=== PATIENT | female | born 1970 | race Caucasian/White ===

== ENCOUNTER 2017-01-23 13:22 | Emergency (ER) | payer SELFPAY ==
[2017-01-23 13:47] VITALS: BP 144/88
--- NOTE | 2017-01-23 14:54 | EDM.PDOC ---
ED HPI GENERAL MEDICAL PROBLEM - General Chief Complaint: Lower Extremity Injury/Pain Stated Complaint: FELL DOWN STEPS Time Seen by Provider: 01/23/17 14:46 Source of Information: Reports: Patient History Limitations: Reports: No Limitations - History of Present Illness INITIAL COMMENTS - FREE TEXT/NARRATIVE: Patient is a 46-year-old female presents ED complaining of left foot and ankle pain. Patient states last night approximately 10:30 she was walking down a set of stairs and missed the last step rolling her ankle. She has been able to weight-bear up until today. Has been applying ice to affected area with some decrease in swelling noted. Denies any pain to the superior aspect of her lower leg, knee, hip. There is no loss consciousness and denies any head neck or back pain. No history of prior injury. Left Ankle Pain Score (Numeric/FACES): 8 - Related Data Allergies Allergy/AdvReac Type Severity Reaction Status Date / Time latex Allergy Rash Verified 08/05/14 13:53 metformin Allergy Diarrhea Verified 01/23/17 13:49 metals Allergy Rash Uncoded 08/05/14 13:53 Home Meds: Home Meds Insulin Glarg,Human.Rec.Analog [Lantus] 50 units INJECT BEDTIME 01/23/17 [ History] Lisinopril 20 mg PO BID 01/23/17 [History] Metoprolol Tartrate 25 mg PO BID 01/23/17 [History] Novalog 60 units INJECT TID 01/23/17 [History] Pregabalin [Lyrica] 100 mg PO Q8H 01/23/17 [History] Venlafaxine [Effexor] 250 mg PO DAILY 01/23/17 [History] glyBURIDE [Glyburide] 4 mg PO DAILY 01/23/17 [History] Past Medical History Gastrointestinal History: Reports: GERD Genitourinary History: Reports: Other (See Below) Other Genitourinary History: cyst on kidney; renal failure twice Musculoskeletal History: Reports: Other (See Below) Other Musculoskeletal History: 3 back surgeries and has pins and rods Neurological History: Reports: Migraines Psychiatric History: Reports: Anxiety, Bipolar, Dementia, PTSD Endocrine/Metabolic History: Reports: Diabetes, Type II - Infectious Disease History Infectious Disease History: Reports: Hepatitis C - Past Surgical History GI Surgical History: Reports: Appendectomy, Cholecystectomy Female Surgical History: Reports: Hysterectomy Social & Family History - Tobacco Use Smoking Status *Q: Current Every Day Smoker Years of Tobacco use: 26 Packs/Tins Daily: 1 - Caffeine Use Caffeine Use: Reports: Soda, Tea - Recreational Drug Use Recreational Drug Use: No Review of Systems - Review of Systems Review Of Systems: ROS reveals no pertinent complaints other than HPI. ED EXAM, GENERAL - Physical Exam Exam: See Below Exam Limited By: No Limitations General Appearance: Alert, WD/WN, Mild Distress Ears: Hearing Grossly Normal Nose: Normal Inspection Throat/Mouth: Normal Voice, No Airway Compromise Neck: Normal Inspection Respiratory/Chest: No Respiratory Distress, No Accessory Muscle Use Cardiovascular: Normal Peripheral Pulses, Regular Rate, Rhythm Peripheral Pulses: 2+: Radial (L) Extremities: Normal Inspection, Normal Capillary Refill, Leg Pain (Dorsal aspect of the left foot and lateral aspect of the ankle. No pain with palpation of the proximal fibula. No pain to the knee, upper leg, hip.), Limited Range of Motion. No: Joint Swelling Neurological: Alert, Oriented, Normal Cognition, No Motor/Sensory Deficits Psychiatric: Normal Affect, Normal Mood Skin Exam: Warm, Dry, Intact. No: Ecchymosis Course - Vital Signs Last Recorded V/S: Last Vital Signs Temp 97.5 F 01/23/17 13:46 Pulse 91 01/23/17 13:46 Resp 20 01/23/17 13:46 BP 144/88 H 01/23/17 13:46 Pulse Ox 98 01/23/17 13:46 - Re-Assessments/Exams Free Text/Narrative Re-Assessment/Exam: Order x-ray of the left foot and ankle. Ice to be applied by nursing staff to the affected area. X-ray of the left foot and ankle reviewed with Dr. Morgan with no acute bony abnormalities noted. Etiology current complaint most likely ankle sprain. Walking boot will be applied along with crutches. Patient will be discharged home with instructions as documented. Departure - Departure Time of Disposition: 16:10 Disposition: Home, Self-Care 01 Condition: Good Clinical Impression: Sprain of left ankle Qualifiers: Encounter type: initial encounter Involved ligament of ankle: unspecified ligament Qualified Code(s): S93.402A - Sprain of unspecified ligament of left ankle, initial encounter Sprain of left foot Qualifiers: Encounter type: initial encounter Qualified Code(s): S93.602A - Unspecified sprain of left foot, initial encounter - Discharge Information Instructions: Crutch Use, [id number], Cast or Splint Care, [id number], Ankle Sprain, [id number] Referrals: PCP,None [Primary Care Provider] - Forms: ED Department Discharge, ED Return to Work/School Form Additional Instructions: X-ray did not reveal any acute bony abnormalities. Final interpretation is pending. You will be notified if their is a fracture present. Etiology current complaint is a ankle/foot sprain. Treatment is symptomatic care including nonweightbearing utilizing crutches to ambulate. Wear walking boot as directed. Elevate when able to reduce swelling and pain. Take ibuprofen and Tylenol in alternating fashion for discomfort. Ice to affected area 6 times daily, 20 minutes in duration, do not place ice directly on skin. Advance weight as tolerated in the next 5 days. Follow-up with PCP of your choice at [facility] in the next 7 days. If not improved at that time you may require orthopedic evaluation. Refrain from any activities that cause worsening pain. Return to ED for any new or worsening symptoms.
--- NOTE | 2017-01-23 18:40 | CR ---
Left foot: Four views of the left foot were obtained. Comparison: Previous left foot exam of 05/09/09. Small plantar spur is seen. Very minimal spur noted at the attachment of the Achilles tendon to the calcaneus. Joint spaces are preserved. No acute fracture, dislocation or other bony abnormality is seen. Mild soft tissue swelling appears to be present. Impression: 1. Incidental findings as noted above. No acute bony abnormality is identified on left foot study. Diagnostic code #2
--- NOTE | 2017-01-23 18:40 | CR ---
Left ankle: Four views of the left ankle were obtained. Comparison: Previous left ankle study of 05/09/09. Soft tissue swelling is identified. Incidental calcaneal spurs are seen. Slight calcification is seen off the lateral ankle compatible with old injury. No acute fracture or other abnormality is identified. Impression: 1. Incidental findings. No acute bony abnormality is identified on left ankle study. Diagnostic code #2
== END 2017-01-23 16:20 | disposition home or self-care (01) ==
LOC: JD.ED 13:22
DX: S93.602A Unspecified sprain of left foot, initial encounter (principal); S93.402A Sprain of unspecified ligament of left ankle, initial encounter; K21.9 Gastro-esophageal reflux disease without esophagitis; F41.9 Anxiety disorder, unspecified; F31.9 Bipolar disorder, unspecified; E11.9 Type 2 diabetes mellitus without complications; F03.90 Unspecified dementia, unspecified severity, without behavioral disturbance, psychotic disturbance, mood disturbance, and anxiety; F17.210 Nicotine dependence, cigarettes, uncomplicated; Z90.49 Acquired absence of other specified parts of digestive tract; Z90.710 Acquired absence of both cervix and uterus; Z79.4 Long term (current) use of insulin; Z79.899 Other long term (current) drug therapy; X50.9XXA Other and unspecified overexertion or strenuous movements or postures, initial encounter; Z88.8 Allergy status to other drugs, medicaments and biological substances; Z91.040 Latex allergy status; Z91.048 Other nonmedicinal substance allergy status
CPT/HCPCS: 73610-26-LT; 73610-LT; 73630-26-LT; 73630-LT; 99283

== ENCOUNTER 2017-05-10 14:49 | Emergency (ER) | payer MEDICAID ==
[2017-05-10 15:01] VITALS: BP 112/91
[2017-05-10] MEDS ORDERED: Aspirin 81 MG Tab.Chew PO ONE (15:25)
[2017-05-10] MEDS ORDERED: Aspirin 81 MG Tab.Chew ONE (15:30)
[2017-05-10] MEDS ORDERED: Sodium Chloride 0.9% 1,000 ML IV SCH (15:30)
--- NOTE | 2017-05-10 15:33 | EDM.PDOC ---
ED HPI GENERAL MEDICAL PROBLEM - General Chief Complaint: Cardiovascular Problem Stated Complaint: CHEST PAIN/L HAND NUMBNESS/HIGH BLOOD SUGAR Time Seen by Provider: 05/10/17 15:02 - History of Present Illness INITIAL COMMENTS - FREE TEXT/NARRATIVE: 46-year-old female presents emergency room with elevated blood sugars chest pain. Patient had fairly sudden onset of very sharp and disturbing chest discomfort that started early this morning around 10 AM. The patient cannot recall having any preceding illness she has not had problems with lower extremity swelling or pain she's had no other problems with upper extremity pain or pain anywhere else for that matter. 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 He has developed type 2 diabetes. The patient is still a smoker but she's decreased her smoking to several cigarettes a day from a much heavier usage pattern. Chest Pain Score (Numeric/FACES): 7 - Related Data Allergies Allergy/AdvReac Type Severity Reaction Status Date / Time latex Allergy Rash Verified 05/10/17 15:01 metformin Allergy Diarrhea Verified 05/10/17 15:01 metals Allergy Rash Uncoded 05/10/17 15:01 Home Meds: Home Meds Insulin Glarg,Human.Rec.Analog [Lantus] 50 units INJECT BEDTIME 01/23/17 [ History] Lisinopril 20 mg PO BID 01/23/17 [History] Metoprolol Tartrate 25 mg PO BID 01/23/17 [History] Novalog 60 units INJECT TID 01/23/17 [History] Pregabalin [Lyrica] 100 mg PO Q8H 01/23/17 [History] Venlafaxine [Effexor] 250 mg PO DAILY 01/23/17 [History] Naproxen [Naprosyn] 500 mg PO Q12HR #30 tablet 05/10/17 [Rx] Past Medical History Gastrointestinal History: Reports: GERD Genitourinary History: Reports: Other (See Below) Other Genitourinary History: cyst on kidney; renal failure twice Musculoskeletal History: Reports: Other (See Below) Other Musculoskeletal History: 3 back surgeries and has pins and rods Neurological History: Reports: Migraines Psychiatric History: Reports: Anxiety, Bipolar, Dementia, PTSD Endocrine/Metabolic History: Reports: Diabetes, Type II - Infectious Disease History Infectious Disease History: Reports: Hepatitis C - Past Surgical History GI Surgical History: Reports: Appendectomy, Cholecystectomy Female Surgical History: Reports: Hysterectomy Social & Family History - Tobacco Use Smoking Status *Q: Current Every Day Smoker Years of Tobacco use: 30 Packs/Tins Daily: 0.3 - Caffeine Use Caffeine Use: Reports: Soda - Recreational Drug Use Recreational Drug Use: Yes Drug Use in Last 12 Months: No Other Recreational Drug Type: "pills" ED ROS GENERAL - Review of Systems Review Of Systems: See Below Constitutional: Reports: No Symptoms. Denies: Fever, Chills HEENT: Reports: No Symptoms Respiratory: Reports: No Symptoms Cardiovascular: Reports: Chest Pain (This just started today) Endocrine: Reports: High Glucose GI/Abdominal: Reports: No Symptoms : Reports: No Symptoms Musculoskeletal: Reports: No Symptoms Skin: Reports: No Symptoms Neurological: Reports: No Symptoms. Denies: Confusion, Dizziness Psychiatric: Reports: No Symptoms Hematologic/Lymphatic: Reports: No Symptoms Immunologic: Reports: No Symptoms ED EXAM, GENERAL - Physical Exam Exam: See Below Exam Limited By: No Limitations General Appearance: Alert, Mild Distress (From the pain). No: No Apparent Distress Head: Atraumatic, Normocephalic Neck: Normal Inspection, Supple, Non-Tender, Full Range of Motion. No: Lymphadenopathy (L), Lymphadenopathy (R) Respiratory/Chest: No Respiratory Distress, Lungs Clear, Normal Breath Sounds Cardiovascular: Regular Rate, Rhythm, No Edema, No Murmur GI/Abdominal: Normal Bowel Sounds, Soft, Non-Tender Back Exam: Normal Inspection. No: CVA Tenderness (L), CVA Tenderness (R) Extremities: Normal Inspection, Non-Tender, No Pedal Edema. No: Jennifer's Sign, Leg Pain EKG INTERPRETATION EKG Date: 05/10/17 Rhythm: NSR [place]: Normal P-Wave: Present QRS: Normal ST-T: Other (Inferior lead ST elevation consistent with a early repolarization) QT: Normal Comparison: NA - No Prior EKG EKG Interpretation Comments: A second EKG was done which did not change she's got downsloping OK intervals and lead 1 they can suggest pericarditis a viral etiology in the early phase Course - Vital Signs Last Recorded V/S: Last Vital Signs Temp 36.2 C 05/10/17 14:54 Pulse 85 05/10/17 14:54 Resp 18 05/10/17 14:54 BP 112/91 H 05/10/17 14:54 Pulse Ox 96 05/10/17 14:54 - Orders/Labs/Meds Orders: Active Orders 24 hr Category Date Time Status EKG Documentation Completion [RC] STAT Care 05/10/17 15:39 Active EKG Documentation Completion [RC] STAT Care 05/10/17 15:52 Active Labs: Laboratory Tests 05/10/17 05/10/17 05/10/17 Range/Units 15:00 15:00 15:00 WBC 12.74 H (3.98-10.04) K/mm3 RBC 4.60 (3.98-5.22) M/mm3 Hgb 14.2 (11.2-15.7) gm/L Hct 40.2 (34.1-44.9) % MCV 87.4 (79.4-94.8) fl MCH 30.9 (25.6-32.2) pg MCHC 35.3 (32.2-35.5) g/dl RDW Std Deviation 40.1 (36.4-46.3) fL Plt Count 242 (182-369) K/mm3 MPV 11.3 (9.4-12.3) fl Neutrophils % (Manual) 55 (40-60) % Band Neutrophils % 0 (0-10) % Lymphocytes % (Manual) 40 (20-40) % Atypical Lymphs % 0 % Monocytes % (Manual) 4 (2-10) % Eosinophils % (Manual) 0 L (0.7-5.8) % Basophils % (Manual) 1 (0.1-1.2) Platelet Estimate Adequate Plt Morphology Comment Normal RBC Morph Comment Normal ESR (0-20) mm/hr PT 10.0 (8.0-13.0) SECONDS INR 0.92 APTT 23 (22-36) SECONDS Sodium (136-145) mEq/L Potassium (3.5-5.1) mEq/L Chloride (98-107) mEq/L Carbon Dioxide (21-32) mEq/L Anion Gap (5-15) BUN (7-18) mg/dL Creatinine (0.55-1.02) mg/dL Est Cr Clr Drug Dosing mL/min Estimated GFR (MDRD) (>60) mL/min BUN/Creatinine Ratio (14-18) Glucose (74-106) mg/dL POC Glucose 328 H (70-105) mg/dL Calcium (8.5-10.1) mg/dL Total Bilirubin (0.2-1.0) mg/dL AST (15-37) U/L ALT (14-59) U/L Alkaline Phosphatase (46-116) U/L Troponin I (0.00-0.056) ng/mL Total Protein (6.4-8.2) g/dl Albumin (3.4-5.0) g/dl Globulin gm/dL Albumin/Globulin Ratio (1-2) 05/10/17 05/10/17 Range/Units 15:00 15:00 WBC (3.98-10.04) K/mm3 RBC (3.98-5.22) M/mm3 Hgb (11.2-15.7) gm/L Hct (34.1-44.9) % MCV (79.4-94.8) fl MCH (25.6-32.2) pg MCHC (32.2-35.5) g/dl RDW Std Deviation (36.4-46.3) fL Plt Count (182-369) K/mm3 MPV (9.4-12.3) fl Neutrophils % (Manual) (40-60) % Band Neutrophils % (0-10) % Lymphocytes % (Manual) (20-40) % Atypical Lymphs % % Monocytes % (Manual) (2-10) % Eosinophils % (Manual) (0.7-5.8) % Basophils % (Manual) (0.1-1.2) Platelet Estimate Plt Morphology Comment RBC Morph Comment ESR 48 H (0-20) mm/hr PT (8.0-13.0) SECONDS INR APTT (22-36) SECONDS Sodium 134 L (136-145) mEq/L Potassium 4.4 (3.5-5.1) mEq/L Chloride 102 (98-107) mEq/L Carbon Dioxide 22 (21-32) mEq/L Anion Gap 14.4 (5-15) BUN 24 H (7-18) mg/dL Creatinine 1.2 H (0.55-1.02) mg/dL Est Cr Clr Drug Dosing 49.49 mL/min Estimated GFR (MDRD) 49 (>60) mL/min BUN/Creatinine Ratio 20.0 H (14-18) Glucose 274 H (74-106) mg/dL POC Glucose (70-105) mg/dL Calcium 9.9 (8.5-10.1) mg/dL Total Bilirubin 0.2 (0.2-1.0) mg/dL AST 96 H (15-37) U/L ALT 114 H (14-59) U/L Alkaline Phosphatase 134 H (46-116) U/L Troponin I < 0.017 (0.00-0.056) ng/mL Total Protein 8.1 (6.4-8.2) g/dl Albumin 3.5 (3.4-5.0) g/dl Globulin 4.6 gm/dL Albumin/Globulin Ratio 0.8 L (1-2) Meds: Medications Discontinued Medications Generic Name Dose Route Start Last Admin Trade Name Freq PRN Reason Stop Dose Admin Aspirin 324 mg 05/10/17 15:25 05/10/17 15:27 Aspirin PO 05/10/17 15:26 324 mg ONETIME ONE Administration Aspirin Confirm 05/10/17 15:30 05/10/17 15:31 Aspirin Administered 05/10/17 15:31 Not Given Dose 324 mg .ROUTE .STK-MED ONE Fentanyl 25 mcg 05/10/17 15:49 05/10/17 15:53 Sublimaze IVPUSH 05/10/17 15:50 25 mcg ONETIME ONE Administration Fentanyl Confirm 05/10/17 15:56 05/10/17 16:25 Sublimaze Administered 05/10/17 15:57 Not Given Dose 100 mcg .ROUTE .STK-MED ONE Fentanyl 25 mcg 05/10/17 16:20 05/10/17 16:23 Sublimaze IVPUSH 05/10/17 16:21 25 mcg ONETIME ONE Administration Sodium Chloride 1,000 mls @ 50 mls/hr 05/10/17 15:30 05/10/17 15:30 Normal Saline IV 999 mls/hr ASDIRECTED JU Administration Sodium Chloride 100 mls @ 60 mls/hr 05/10/17 16:30 05/10/17 16:42 Normal Saline IV 60 mls/hr ASDIRECTED JU Administration Iopamidol 100 ml 05/10/17 16:25 05/10/17 16:42 Isovue-370 (76%) IVPUSH 05/10/17 16:26 100 ml ONETIME ONE Administration Ketorolac Tromethamine 15 mg 05/10/17 18:58 05/10/17 19:14 Toradol IVPUSH 05/10/17 18:59 15 mg ONETIME ONE Administration Sodium Chloride 10 ml 05/10/17 16:25 05/10/17 16:42 Saline Flush FLUSH 05/10/17 16:26 10 ml ONETIME ONE Administration - Re-Assessments/Exams Free Text/Narrative Re-Assessment/Exam: 05/10/17 19:41 Patient had EKG done initially which had some ST elevation noted in the inferior leads this is more consistent with early repolarization in the inferior leads no significant reciprocal changes noted in the anterior leads. And downsloping OK interval in lead 1 troponin did come back negative with her continued pain in the sudden onset went ahead and obtained a CTA of the chest. This ultimately was negative no acute changes noted to the aorta no evidence of a PE. Her sedimentation rate did come back elevated. Patient was given a dose of Toradol 15 mg IV and is feeling better at this point her pain is down to a 3 or 4 she would like to go home. Departure - Departure Time of Disposition: 19:45 Disposition: Home, Self-Care 01 Clinical Impression: Chest pain, Pericarditis Prescriptions: Naproxen [Naprosyn] 500 mg PO Q12HR #30 tablet Instructions: Pericarditis, Nonspecific Chest Pain Referrals: Christina Grady NP [Primary Care Provider] - Forms: ED Department Discharge Additional Instructions: Return to the emergency room with any questions problems or worsening symptoms. Follow-up in the clinic early this next week for recheck. You have been started on Naprosyn 500 mg take one twice daily with meals. With you being on your antidepressants watch for potential interactions that include bleeding problems. If you develop any leading problems get seen in the clinic or follow-up in the emergency room. - My Orders Last 24 Hours: My Active Orders 05/10/17 15:39 EKG Documentation Completion [RC] STAT 05/10/17 15:52 EKG Documentation Completion [RC] STAT - Assessment/Plan Last 24 Hours: My Active Orders 05/10/17 15:39 EKG Documentation Completion [RC] STAT 05/10/17 15:52 EKG Documentation Completion [RC] STAT
[2017-05-10] MEDS ORDERED: fentaNYL 100 MCG/2 ML SDV IVPUSH ONE ×2 (15:49→16:20)
[2017-05-10] MEDS ORDERED: fentaNYL 100 MCG/2 ML SDV ONE (15:56)
[2017-05-10] MEDS ORDERED: Sodium Chloride 0.9% 10 ML Syringe FLUSH ONE (16:25)
[2017-05-10] MEDS ORDERED: Iopamidol 755 Mg/ML 100 ML Bottle IVPUSH ONE (16:25)
[2017-05-10] MEDS ORDERED: Sodium Chloride 0.9% 100 ML IV SCH (16:30)
--- NOTE | 2017-05-10 17:03 | CT ---
Thoracic aorta shows a normal size. Ascending aorta has an AP dimension of 3.0 cm and descending aorta has an AP dimension of 2.3 cm. No evidence of intimal flap to indicate dissection is seen. Upper abdominal aorta appears normal in size. --- Addendum1 above dictated on [05/10/2017 18:17] by [Heather Ramos, Vu Abreu] --- --- Addendum1 above signed on [05/10/2017 18:17] by [Heather Ramos Hilton J.] --- --- Original report below dictated on [05/10/2017 17:00] by [Heather Ramos, Vu Abreu] --- --- Original report below signed on [05/10/2017 17:00] by [Heather Ramos, Vu Abreu] --- CT chest Technique: Multiple axial sections through the chest were obtained. Intravenous contrast was utilized. Study has been performed as a pulmonary angiogram protocol. Findings: Pulmonary arteries are well-opacified. No filling defects are seen to indicate pulmonary embolism. Mediastinum and hilar regions show no adenopathy or mass. No pericardial thickening is seen. Previous cholecystectomy is noted. Visualized upper abdominal structures are otherwise within normal limits. Lungs are clear. No pleural effusions are seen. Bone window settings were reviewed which appear within normal limits for the patient's age. Impression: 1. No findings of pulmonary embolism. Nothing acute is appreciated on CT study of the chest. Diagnostic code #1 --- Addendum1 signed ---
--- NOTE | 2017-05-10 17:52 | CR ---
Chest: Portable view of the chest was obtained. Comparison: Prior chest x-ray of 09/21/10. Heart size and mediastinum are within normal limits. Lungs are clear. Bony structures are grossly intact. Impression: 1. Nothing acute is identified on frontal chest x-ray. Diagnostic code #1
[2017-05-10] MEDS ORDERED: Ketorolac 15 MG/ML SDV IVPUSH ONE (18:58)
== END 2017-05-10 20:00 | disposition home or self-care (01) ==
LOC: JD.ED 14:49
DX: I31.9 Disease of pericardium, unspecified (principal); E11.9 Type 2 diabetes mellitus without complications; F31.9 Bipolar disorder, unspecified; F17.210 Nicotine dependence, cigarettes, uncomplicated; Z79.4 Long term (current) use of insulin; Z79.899 Other long term (current) drug therapy; Z88.8 Allergy status to other drugs, medicaments and biological substances; Z91.040 Latex allergy status; Z91.048 Other nonmedicinal substance allergy status
CPT/HCPCS: 36415; 71010; 71275; 80053; 82962; 84484; 85025; 85610; 85652; 85730; 93005; 96361; 96374; 96375; 96376; 99285; A9270; J1885; J3010; J7030; J7040; J7050; Q9967

== ENCOUNTER 2018-08-13 15:18 | Emergency (ER) | payer MEDICAID ==
[2018-08-13 15:40] VITALS: BP 136/77
[2018-08-13] MEDS ORDERED: Sodium Chloride 0.9% 10 ML Syringe FLUSH PRN (16:03)
--- NOTE | 2018-08-13 16:28 | EDM.PDOC ---
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 Other Treatments STORE TEAM MEMBER: t 0800 Bilateral Arm Pain Score (Numeric/FACES): 9 - Related Data Allergies Allergy/AdvReac Type Severity Reaction Status Date / Time latex Allergy Rash Verified 08/13/18 15:33 metformin Allergy Diarrhea Verified 08/13/18 15:33 metals Allergy Rash Uncoded 05/10/17 15:01 Home Meds: Home Meds Insulin Glarg,Human.Rec.Analog [Lantus] 50 units INJECT BEDTIME 01/23/17 [ History] Lisinopril 20 mg PO BID 01/23/17 [History] Novalog 60 units INJECT TID 01/23/17 [History] Pregabalin [Lyrica] 100 mg PO Q8H 01/23/17 [History] Venlafaxine [Effexor] 250 mg PO DAILY 01/23/17 [History] Doxycycline [Vibramycin] 200 mg PO BID 10 Days #20 tab 08/13/18 [Rx] Past Medical History Gastrointestinal History: Reports: GERD Genitourinary History: Reports: Other (See Below) Other Genitourinary History: cyst on kidney; renal failure twice Musculoskeletal History: Reports: Other (See Below) Other Musculoskeletal History: 3 back surgeries and has pins and rods Neurological History: Reports: Migraines Psychiatric History: Reports: Anxiety, Bipolar, Dementia, PTSD Endocrine/Metabolic History: Reports: Diabetes, Type II Hematologic History: Reports: None Dermatologic History: Reports: Psoriasis - Infectious Disease History Infectious Disease History: Reports: Hepatitis C - Past Surgical History GI Surgical History: Reports: Appendectomy, Cholecystectomy Female Surgical History: Reports: Hysterectomy Social & Family History - Tobacco Use Smoking Status *Q: Current Every Day Smoker Years of Tobacco use: 27 Packs/Tins Daily: 0.5 - Caffeine Use Caffeine Use: Reports: Coffee, Soda - Recreational Drug Use Recreational Drug Use: Yes Drug Use in Last 12 Months: No Recreational Drug Type: Reports: Methamphetamine Recreational Drug Use Frequency: Not Used In Over 6 Months ED EXAM, SKIN/RASH Exam: See Below Exam Limited By: No Limitations General Appearance: Alert, Anxious, Moderate Distress, Obese, Other (restless) Eye Exam: Bilateral Eye: EOMI, Normal Inspection, PERRL Ears: Other (Pt has erythemetous skin in the left canal. Right canal normal. TM hazy bilaterallywithout bulging.). No: Hearing Loss Nose: Normal Inspection, Normal Mucosa, No Blood Throat/Mouth: Other (Dentures in place. No oral lesions present. Tonsils not present. Pharynx with diffuse erythema, no exudate) Head: Atraumatic, Normocephalic Neck: Normal Inspection, Full Range of Motion, Tender Lateral (left jugulodigastric region) Respiratory/Chest: Lungs Clear, Normal Breath Sounds, Other (pt is anxious and tachypneic ). No: Crackles, Rales, Rhonchi, Wheezing, Stridor, Pleural Rub, Splinting, Prolonged Expiration Cardiovascular: Normal Peripheral Pulses, Regular Rate, Rhythm, No Edema, No Gallop, No JVD, No Murmur, No Rub Peripheral Pulses: 2+: Radial (L), Radial (R), Dorsalis Pedis (L), Dorsalis Pedis (R) GI/Abdominal: Normal Bowel Sounds, Soft, Non-Tender, No Organomegaly, No Distention, No Abnormal Bruit, No Mass (Female) Exam: Deferred Rectal (Female) Exam: Deferred Back Exam: Normal Inspection, Full Range of Motion, NT Extremities: Normal Inspection, Normal Range of Motion, Non-Tender, No Pedal Edema, Normal Capillary Refill Neurological: Alert, Oriented, CN II-XII Intact, Normal Cognition, Normal Gait, Normal Reflexes, No Motor/Sensory Deficits Psychiatric: Anxious, Tearful Skin: Erythema, Increased Warmth (over left arm nodule), Rash (scattered over chest and back with blanchable erythematous macules with central scale), Other ( No splinter hemorrhages of the UE nails. No osler nodes of the hands. No lesions of the hands or feet. Scattererd and diffuse blanchable macules on torsoe and extremities. 3-4 cm oval nodule present on left arm near flexor surface of the elbow that is warm and tender to touch. Stomach with multiple hemorrhagic crusting lesions.). No: Cyanosis, Diaphoretic, Ecchymosis, Mottled Location, Skin: Chest, Abdomen, Back, Upper Extremity, Right, Upper Extremity, Left, Lower Extremity, Right, Lower Extremity, Left, Generalized. No: Palms, Axillary, Groin Characteristics: Macular, Papular, Patchy, Erythematous. No: Vesicular, Bullous , Urticarial Associated features: Warmth, Tenderness, Swelling, Scaling, Crusting. No: Weeping Lymphatic: Other (generalized vasculitis especially of upper limbs bilaterally.) Front/Back Body Diagram: 1 - Nodule 3-4 cm erythemetous, warm, and tender 2 - 2 cm nodule erythematous, warm, and tender Course - Vital Signs Last Recorded V/S: Last Vital Signs Temp 98.0 F 08/13/18 15:38 Pulse 116 H 08/13/18 15:38 Resp 22 H 08/13/18 15:38 BP 136/77 08/13/18 15:38 Pulse Ox 99 08/13/18 15:38 - Orders/Labs/Meds Orders: Active Orders 24 hr Category Date Time Status Peripheral IV Care [RC] . DIRECTED Care 08/13/18 16:03 Active CULTURE BLOOD [BC] Stat Lab 08/13/18 16:30 Received CULTURE BLOOD [BC] Stat Lab 08/13/18 16:40 Received DRUG SCREEN, URINE [URCHEM] Stat Lab 08/13/18 17:40 Received Sodium Chloride 0.9% [Saline Flush] Med 08/13/18 16:03 Active 10 ml FLUSH ASDIRECTED PRN Blood Culture x2 Reflex Set [OM.PC] Stat Oth 08/13/18 16:01 Ordered Peripheral IV Insertion Adult [OM.PC] Routine Oth 08/13/18 16:03 Ordered Medication Orders Sodium Chloride (Saline Flush) 10 ml FLUSH ASDIRECTED PRN PRN Reason: Keep Vein Open Last Admin: 08/13/18 16:43 Dose: 10 ml Labs: Laboratory Tests 08/13/18 08/13/18 08/13/18 Range/Units 16:40 16:40 16:40 WBC 9.07 (3.98-10.04) K/mm3 RBC 3.66 L (3.98-5.22) M/mm3 Hgb 11.2 (11.2-15.7) gm/L Hct 32.8 L (34.1-44.9) % MCV 89.6 (79.4-94.8) fl MCH 30.6 (25.6-32.2) pg MCHC 34.1 (32.2-35.5) g/dl RDW Std Deviation 39.8 (36.4-46.3) fL Plt Count 161 L (182-369) K/mm3 MPV 10.3 (9.4-12.3) fl Neut % (Auto) 78.7 H (34.0-71.1) % Lymph % (Auto) 17.2 L (19.3-51.7) % Walker % (Auto) 3.9 L (4.7-12.5) % Eos % (Auto) 0 L (0.7-5.8) Baso % (Auto) 0.1 (0.1-1.2) % Neut # (Auto) 7.14 H (1.56-6.13) K/mm3 Lymph # (Auto) 1.56 (1.18-3.74) K/mm3 Walker # (Auto) 0.35 (0.24-0.36) K/mm3 Eos # (Auto) 0.00 L (0.04-0.36) K/mm3 Baso # (Auto) 0.01 (0.01-0.08) K/mm3 Sodium 131 L (136-145) mEq/L Potassium 4.5 (3.5-5.1) mEq/L Chloride 98 (98-107) mEq/L Carbon Dioxide 24 (21-32) mEq/L Anion Gap 13.5 (5-15) BUN 28 H (7-18) mg/dL Creatinine 1.4 H (0.55-1.02) mg/dL Est Cr Clr Drug Dosing 41.98 mL/min Estimated GFR (MDRD) 41 (>60) mL/min BUN/Creatinine Ratio 20.0 H (14-18) Glucose 480 H (74-106) mg/dL Lactic Acid 1.5 (0.4-2.0) mmol/L Calcium 9.3 (8.5-10.1) mg/dL Total Bilirubin 0.3 (0.2-1.0) mg/dL AST 60 H (15-37) U/L ALT 87 H (14-59) U/L Alkaline Phosphatase 113 (46-116) U/L C-Reactive Protein 0.5 (<1.0) mg/dL Total Protein 7.1 (6.4-8.2) g/dl Albumin 3.3 L (3.4-5.0) g/dl Globulin 3.8 gm/dL Albumin/Globulin Ratio 0.9 L (1-2) Meds: Medications Generic Name Dose Route Start Last Admin Trade Name Freq PRN Reason Stop Dose Admin Sodium Chloride 10 ml 08/13/18 16:03 08/13/18 16:43 Saline Flush FLUSH 10 ml ASDIRECTED PRN Administration Keep Vein Open Discontinued Medications Generic Name Dose Route Start Last Admin Trade Name Freq PRN Reason Stop Dose Admin Vancomycin HCl 1 gm/ Sodium 250 mls @ 250 mls/hr 08/13/18 16:11 08/13/18 16: 43 Chloride IV 08/13/18 17:10 250 mls/hr ONETIME ONE Administration Departure - Departure Disposition: Against Medical Advice 07 Clinical Impression: Pruritic rash, Psoriasis, Abscess - Discharge Information Prescriptions: Doxycycline [Vibramycin] 200 mg PO BID 10 Days #20 tab Referrals: Christina Grady NP [Primary Care Provider] - Forms: ED Department Discharge Additional Instructions: Pt left AMA before discharge could be done. She does seem to have psoriasis as well as skin infection with 2 abscesses on the forearms near the antecubital fossas. Will send prescription to her pharmacy for Doxycycline 200 BID x 10 days to cover for possible MRSA. - My Orders Last 24 Hours: My Active Orders 08/13/18 16:01 Blood Culture x2 Reflex Set [OM.PC] Stat 08/13/18 16:03 Peripheral IV Care [RC] . DIRECTED Sodium Chloride 0.9% [Saline Flush] 10 ml FLUSH ASDIRECTED PRN Peripheral IV Insertion Adult [OM.PC] Routine 08/13/18 16:30 CULTURE BLOOD [BC] Stat 08/13/18 16:40 CULTURE BLOOD [BC] Stat 08/13/18 17:40 DRUG SCREEN, URINE [URCHEM] Stat - Assessment/Plan Last 24 Hours: My Active Orders 08/13/18 16:01 Blood Culture x2 Reflex Set [OM.PC] Stat 08/13/18 16:03 Peripheral IV Care [RC] . DIRECTED Sodium Chloride 0.9% [Saline Flush] 10 ml FLUSH ASDIRECTED PRN Peripheral IV Insertion Adult [OM.PC] Routine 08/13/18 16:30 CULTURE BLOOD [BC] Stat 08/13/18 16:40 CULTURE BLOOD [BC] Stat 08/13/18 17:40 DRUG SCREEN, URINE [URCHEM] Stat <Dai Angulo - Last Filed: 08/13/18 18:24> ED HPI GENERAL MEDICAL PROBLEM - General Source of Information: Reports: Patient History Limitations: Reports: No Limitations - History of Present Illness INITIAL COMMENTS - FREE TEXT/NARRATIVE: Pt is a 47 yo F who comes in today for multiple rashes "all over my body" that are painful, red, and there looks to be two "bumps" on her forearms x 2 days. She was diagnosed with psoriasis 5 months ago and was started on Prednisone, which she is still taking, and also uses lotion every day- however, she did say she ran out of steroid cream 1 month ago. She was seen in clinic by her PCP 2 days ago and was told she "has an infection" and was started on Amoxicillin BID. She states her symptoms have only gotten worse since starting treatment. She states she did have fever/chills, SOB, and pain, but no fever here today. She denies N/V/D, LAI, Chest pain, palpitations, abdominal pain, or any other symptoms at this time. She admits to scratching and there are numerous pryor on her arms, etc which may have allowed an infection to enter. No other wounds or cuts seen on her body. She denies any allergies or animals at home. She states she used to do IV drugs (methamphetamine) 16 years ago. She also has a h/o DM2 and Hepatitis C. She is a smoker. PCP is Christina Grady NP. ED ROS GENERAL - Review of Systems Review Of Systems: ROS reveals no pertinent complaints other than HPI. Course - Orders/Labs/Meds Labs: Laboratory Tests 08/13/18 08/13/18 08/13/18 Range/Units 16:40 16:40 16:40 WBC 9.07 (3.98-10.04) K/mm3 RBC 3.66 L (3.98-5.22) M/mm3 Hgb 11.2 (11.2-15.7) gm/L Hct 32.8 L (34.1-44.9) % MCV 89.6 (79.4-94.8) fl MCH 30.6 (25.6-32.2) pg MCHC 34.1 (32.2-35.5) g/dl RDW Std Deviation 39.8 (36.4-46.3) fL Plt Count 161 L (182-369) K/mm3 MPV 10.3 (9.4-12.3) fl Neut % (Auto) 78.7 H (34.0-71.1) % Lymph % (Auto) 17.2 L (19.3-51.7) % Walker % (Auto) 3.9 L (4.7-12.5) % Eos % (Auto) 0 L (0.7-5.8) Baso % (Auto) 0.1 (0.1-1.2) % Neut # (Auto) 7.14 H (1.56-6.13) K/mm3 Lymph # (Auto) 1.56 (1.18-3.74) K/mm3 Walker # (Auto) 0.35 (0.24-0.36) K/mm3 Eos # (Auto) 0.00 L (0.04-0.36) K/mm3 Baso # (Auto) 0.01 (0.01-0.08) K/mm3 Sodium 131 L (136-145) mEq/L Potassium 4.5 (3.5-5.1) mEq/L Chloride 98 (98-107) mEq/L Carbon Dioxide 24 (21-32) mEq/L Anion Gap 13.5 (5-15) BUN 28 H (7-18) mg/dL Creatinine 1.4 H (0.55-1.02) mg/dL Est Cr Clr Drug Dosing 41.98 mL/min Estimated GFR (MDRD) 41 (>60) mL/min BUN/Creatinine Ratio 20.0 H (14-18) Glucose 480 H (74-106) mg/dL Lactic Acid 1.5 (0.4-2.0) mmol/L Calcium 9.3 (8.5-10.1) mg/dL Total Bilirubin 0.3 (0.2-1.0) mg/dL AST 60 H (15-37) U/L ALT 87 H (14-59) U/L Alkaline Phosphatase 113 (46-116) U/L C-Reactive Protein 0.5 (<1.0) mg/dL Total Protein 7.1 (6.4-8.2) g/dl Albumin 3.3 L (3.4-5.0) g/dl Globulin 3.8 gm/dL Albumin/Globulin Ratio 0.9 L (1-2) - Re-Assessments/Exams Free Text/Narrative Re-Assessment/Exam: 08/13/18 16:00 I ordered CBC, CMP, CRP, Drug screen, Lactic Acid, Blood Culture, CXR Will start her on Vancomycin as she does look to have a significant infection 08/13/18 17:05 CXR shows nothing acute per formal read. 08/13/18 17:18 CBC WNL 08/13/18 18:07 CMP shows Na 131, BUN 28, Cr 1.4, Glu 80, AST 60, ALT 87 Will offer IV NS to help increase sodium, but pt wants to leave. She states "I have to get home to my ". I told her that her infection is very concerning and if she leaves it would be against medical advice, she states she understands and just wants to go. She is getting increasingly agitated and is restless. Although I do not recommend her leaving, I will prescribe doxycycline to cover her infection as it could be MRSA. 08/13/18 18:18 Drug screen positive for opiates, methamphetamine, amphetamine. With this information, it seems plausible that her abscesses may be related to this. Departure - Departure Time of Disposition: 18:12 Condition: Undetermined - Discharge Information *PRESCRIPTION DRUG MONITORING PROGRAM REVIEWED*: Not Applicable *COPY OF PRESCRIPTION DRUG MONITORING REPORT IN PATIENT GUILLE: Not Applicable
--- NOTE | 2018-08-13 17:11 | CR ---
Chest: Two views of the chest were obtained. Comparison: Prior chest CT of 05/10/17 and chest x-ray also performed on 05/10/17. Heart size and mediastinum are normal. Lungs are clear. Minimal scoliosis is noted within the spine. Nothing acute is seen within the osseous structures. Impression: 1. Incidental findings. Nothing acute is seen. Diagnostic code #2
== END 2018-08-13 18:13 | disposition left against medical advice (07) ==
LOC: JD.ED 15:18
DX: L02.414 Cutaneous abscess of left upper limb (principal); L02.413 Cutaneous abscess of right upper limb; L40.9 Psoriasis, unspecified; K21.9 Gastro-esophageal reflux disease without esophagitis; F31.9 Bipolar disorder, unspecified; F41.9 Anxiety disorder, unspecified; E11.9 Type 2 diabetes mellitus without complications; F17.210 Nicotine dependence, cigarettes, uncomplicated; Z91.040 Latex allergy status; Z91.09 Other allergy status, other than to drugs and biological substances; Z88.8 Allergy status to other drugs, medicaments and biological substances; Z79.4 Long term (current) use of insulin; Z79.899 Other long term (current) drug therapy
CPT/HCPCS: 36415; 71046; 80053; 80306; 83605; 85025; 86140; 87040; 96365; 99283; J3370; J7050

== ENCOUNTER 2019-03-31 14:02 | Emergency (ER) | payer MEDICAID ==
[2019-03-31 14:14] VITALS: BP 149/116; PULSE 108
--- NOTE | 2019-03-31 14:40 | EDM.PDOC ---
ED HPI GENERAL MEDICAL PROBLEM - General Chief Complaint: Skin Complaint Stated Complaint: KNOTS FROM RASH Time Seen by Provider: 03/31/19 14:27 Source of Information: Reports: Patient, RN Notes Reviewed History Limitations: Reports: No Limitations - History of Present Illness INITIAL COMMENTS - FREE TEXT/NARRATIVE: Patient is a 48 old female who presents to the ED for evaluation of a red lump on her left leg. This lesion is just above her knee, on the lateral left leg. Patient notes she has a history of psoriasis, and MRSA. She noted that she had this boil to the area that developed a day or 2 ago, she was trying to take hot showers, as she stated that she drained some pus from this. The patient notes that she has history of a boil like this sometime this last spring, for which she needed IV antibiotics. Patient also notes she has a positive history for hepatitis C. She denies any fevers or chills, nausea vomiting or diarrhea, chest pain or shortness of breath. She would rate her pain at a 3 out of 10 today. 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: Musculoskeletal History: Reports: Other (See Below) Other Musculoskeletal History: 3 back surgeries and has pins and rods Neurological History: Reports: Migraines Psychiatric History: Reports: Anxiety, Bipolar, Dementia, PTSD Endocrine/Metabolic History: Reports: Diabetes, Type II Hematologic History: Reports: None Dermatologic History: Reports: Psoriasis - Infectious Disease History Infectious Disease History: Reports: Hepatitis C, MRSA - Past Surgical History HEENT Surgical History: Reports: Adenoidectomy, Tonsillectomy GI Surgical History: Reports: Appendectomy, Cholecystectomy Female Surgical History: Reports: Hysterectomy Social & Family History - Family History Cardiac: Reports: CAD Neurological: Reports: CVA Oncologic: Reports: Breast, Cervix - Tobacco Use Smoking Status *Q: Current Every Day Smoker Years of Tobacco use: 28 Packs/Tins Daily: 0.2 - Caffeine Use Caffeine Use: Reports: Coffee, Soda - Recreational Drug Use Recreational Drug Use: No ED ROS GENERAL - Review of Systems Review Of Systems: See Below Constitutional: Denies: Fever, Chills HEENT: Reports: No Symptoms Respiratory: Denies: Shortness of Breath Cardiovascular: Denies: Chest Pain GI/Abdominal: Denies: Abdominal Pain, Diarrhea, Nausea, Vomiting Musculoskeletal: Reports: No Symptoms Skin: Reports: Lumps (L lateral leg just superior to knee, tender to touch) Neurological: Denies: Numbness, Tingling Psychiatric: Reports: No Symptoms Hematologic/Lymphatic: Reports: No Symptoms Immunologic: Reports: No Symptoms ED EXAM, SKIN/RASH Exam: See Below Exam Limited By: No Limitations General Appearance: Alert, WD/WN, No Apparent Distress Respiratory/Chest: No Respiratory Distress, Lungs Clear, Normal Breath Sounds, No Accessory Muscle Use, Chest Non-Tender Cardiovascular: Normal Peripheral Pulses, Regular Rate, Rhythm, No Murmur Peripheral Pulses: 3+: Dorsalis Pedis (L), Dorsalis Pedis (R) Extremities: Normal Inspection (see skin assessment), Normal Capillary Refill Neurological: Alert, Oriented, Normal Cognition, No Motor/Sensory Deficits Psychiatric: Normal Affect, Normal Mood Skin: Warm, Dry, Intact, Normal Color, Erythema (1 area to the left lateral leg just superior to the ED, this is roughly walnut size, tender to touch, and mobile.), Other (Many lesions noted throughout all surfaces of the body, she states that she has a history of psoriasis, these would be consistent with these type lesions.) Location, Skin: Lower Extremity, Left Characteristics: Papular, Erythematous Associated features: Warmth, Tenderness. No: Weeping Course - Vital Signs Last Recorded V/S: Last Vital Signs Temp 97.3 F 03/31/19 14:09 Pulse 108 H 03/31/19 14:09 Resp 18 03/31/19 14:09 BP 149/116 H 03/31/19 14:09 Pulse Ox 100 03/31/19 14:09 - Re-Assessments/Exams Free Text/Narrative Re-Assessment/Exam: 03/31/19 14:34 Patient presents to the ED for evaluation of possible abscess. I do believe that this is an abscess in nature, this is roughly pink palm ball size. Tender to the touch, but does not have any sort of Center discoloration to suggest that we could possibly drain this. Will prescribe her with oral doxycycline on an outpatient basis, the borders will be marked with a skin pen, she is aware that if it extends past this border by 2 fingerbreadths she needs to be re- evaluated. Departure - Departure Time of Disposition: 14:35 Disposition: Home, Self-Care 01 Condition: Fair Clinical Impression: Abscess Cellulitis Qualifiers: Site of cellulitis: extremity Site of cellulitis of extremity: lower extremity Laterality: left Qualified Code(s): L03.116 - Cellulitis of left lower limb - Discharge Information *PRESCRIPTION DRUG MONITORING PROGRAM REVIEWED*: No *COPY OF PRESCRIPTION DRUG MONITORING REPORT IN PATIENT GUILLE: No Prescriptions: Doxycycline [Vibramycin] 100 mg PO BID #20 tab Instructions: Skin Abscess, [id number], Cellulitis, Adult, [id number] Referrals: Christina Grady NP [Primary Care Provider] - Forms: ED Department Discharge Additional Instructions: You were evaluated in the ER today regarding the possible abscess on her left leg. This does look consistent with an abscess, with surrounding cellulitis. You will be prescribed a outpatient prescription antibiotics for this. Doxycycline 1 tab 2 times daily for 10 days. This was electronically prescribed to [facility] located on [address]. You may take ibuprofen 600 mg every 6 hours or 500 g of Tylenol every 6 hours as needed for further pain relief. Do not exceed 3200 mg ibuprofen or 4000 mg Tylenol in a 24-hour time span. You may try hot packs to the area, this might help relieve the abscess in a quicker time frame. This area was marked with a skin marker, if the redness extends at least 2 finger widths past this border, recommend that you be re-evaluated. Please return to the ED if your symptoms change or worsen
== END 2019-03-31 14:48 | disposition home or self-care (01) ==
LOC: JD.ED 14:02
DX: L02.416 Cutaneous abscess of left lower limb (principal); L03.116 Cellulitis of left lower limb; I10 Essential (primary) hypertension; E11.9 Type 2 diabetes mellitus without complications; F17.210 Nicotine dependence, cigarettes, uncomplicated; Z88.8 Allergy status to other drugs, medicaments and biological substances; Z91.040 Latex allergy status; Z91.048 Other nonmedicinal substance allergy status
CPT/HCPCS: 99282; 99283

== ENCOUNTER 2019-04-29 13:09 | Emergency (ER) | payer MEDICAID ==
[2019-04-29 13:34] VITALS: BP 163/92; PULSE 117
[2019-04-29] MEDS ORDERED: Lidocaine 1% 10 ML MDV INJECT ONE (14:01)
--- NOTE | 2019-04-29 14:02 | EDM.PDOC ---
ED HPI GENERAL MEDICAL PROBLEM - General Chief Complaint: Lower Extremity Injury/Pain Stated Complaint: SKIN COMPLAINT ON RIGHT LEG Time Seen by Provider: 04/29/19 13:32 - History of Present Illness INITIAL COMMENTS - FREE TEXT/NARRATIVE: Patient is a 48 year old female who presents with complaints of an abscess to her right medial calf. She has seen her primary care provider who did place her on Bactrim DS twice daily. She is currently on day 8 of 10 days. She states that the area of infection was initially much larger than it is now, however the area is now more firm and indurated. She states that the pressure makes it painful. 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 She states that when she scratches at her psoriasis the area opens and she frequently gets wound infections. She was recently started on a topical treatment for her psoriasis, however she is unsure of what the medication is. She denies any fever, chills, nausea, or vomiting. Right Lower Leg Pain Score (Numeric/FACES): 6 - Related Data Allergies Allergy/AdvReac Type Severity Reaction Status Date / Time adhesive Allergy Rash Verified 04/29/19 13:34 latex Allergy Rash Verified 04/29/19 13:34 metformin AdvReac Diarrhea Verified 04/29/19 13:34 metals Allergy Rash Uncoded 04/29/19 13:34 Home Meds: Home Meds Insulin Aspart [NovoLOG] 1 unit SQ ASDIRECTED 04/29/19 [History] Insulin Glarg,Human.Rec.Analog [Lantus] 40 unit SQ DAILY 04/29/19 [History] Sulfamethoxazole/Trimethoprim [Bactrim Ds Tablet] 1 each PO BID #8 tablet [Rx] Sulfamethoxazole/Trimethoprim [Bactrim Ds Tablet] 1 tab PO DAILY 04/29/19 [ History] Past Medical History Cardiovascular History: Reports: Hypertension Gastrointestinal History: Reports: GERD Genitourinary History: Reports: Other (See Below) Other Genitourinary History: cyst on kidney; renal failure twice [employer] History: Reports: Musculoskeletal History: Reports: Other (See Below) Other Musculoskeletal History: 3 back surgeries and has pins and rods Neurological History: Reports: Migraines Psychiatric History: Reports: Anxiety, Bipolar, Dementia, PTSD Endocrine/Metabolic History: Reports: Diabetes, Type II Hematologic History: Reports: None Dermatologic History: Reports: Psoriasis - Infectious Disease History Infectious Disease History: Reports: Hepatitis C, MRSA - Past Surgical History HEENT Surgical History: Reports: Adenoidectomy, Tonsillectomy GI Surgical History: Reports: Appendectomy, Cholecystectomy Female Surgical History: Reports: Hysterectomy Social & Family History - Family History Cardiac: Reports: CAD Neurological: Reports: CVA Oncologic: Reports: Breast, Cervix - Tobacco Use Smoking Status *Q: Current Every Day Smoker Years of Tobacco use: 20 Packs/Tins Daily: 0.2 - Caffeine Use Caffeine Use: Reports: Coffee, Soda - Recreational Drug Use Recreational Drug Use: No Review of Systems - Review of Systems Review Of Systems: See Below Constitutional: Reports: No Symptoms. Denies: Chills, Fever Eyes: Reports: No Symptoms Ears: Reports: No Symptoms Nose: Reports: No Symptoms Mouth/Throat: Reports: No Symptoms Respiratory: Reports: No Symptoms Cardiovascular: Reports: No Symptoms GI/Abdominal: Reports: No Symptoms Genitourinary: Reports: No Symptoms Musculoskeletal: Reports: No Symptoms Skin: Reports: Rash (widespread psoriasis), Lesions (5 cm abcess to rt medial calf) Neurological: Reports: No Symptoms Psychiatric: Reports: No Symptoms ED EXAM, GENERAL - Physical Exam Exam: See Below Exam Limited By: No Limitations General Appearance: Alert, WD/WN, No Apparent Distress Respiratory/Chest: No Respiratory Distress, Lungs Clear, Normal Breath Sounds, No Accessory Muscle Use, Chest Non-Tender Cardiovascular: Normal Peripheral Pulses, Regular Rate, Rhythm, No Edema, No Murmur GI/Abdominal: Normal Bowel Sounds, Soft, Non-Tender, No Distention Neurological: Alert, Oriented, Normal Cognition Psychiatric: Normal Affect, Normal Mood Skin Exam: Warm, Dry, Normal Color, Rash (widespread psoriasis to extremities and torso), Wound/Incision (5 cm firm, indurated abcess to right medial calf. Small scab present. ) ED TRAUMA EXTREMITY PROCEDURES - I&D Site: Right medial calf Skin Prep: Chlorhexidine (Hibiciens) Local Anesthesia: Lidocaine: 1% Plain Local Anesthetic Volume: 2cc Area Incised With: 11 Blade Drainage: Purulent, Bloody, Moderate Amount Probed to Break Up Loculations: Yes Packed With: 1/2 in. Iodoform Sterile Dressing: Other (nonstick telfa) Complications: No Progress/Comments: Area wrapped in gauze and coban. Course - Vital Signs Last Recorded V/S: Last Vital Signs Temp 97.5 F 04/29/19 13:30 Pulse 117 H 04/29/19 13:30 Resp 20 04/29/19 13:30 BP 163/92 H 04/29/19 13:30 Pulse Ox 97 04/29/19 13:30 - Orders/Labs/Meds Meds: Medications Discontinued Medications Generic Name Dose Route Start Last Admin Trade Name Fay PRN Reason Stop Dose Admin Lidocaine HCl 10 ml 04/29/19 14:01 04/29/19 14:46 Xylocaine 1% INJECT 04/29/19 14:02 10 ml ONETIME ONE Administration - Re-Assessments/Exams Free Text/Narrative Re-Assessment/Exam: Patient is a 48-year-old female who presents with a 5 cm firm, indurated abscess to the right medial calf. She states that initially the area of infection did encompass her entire medial calf, however the redness has improved since starting the treatment with Bactrim. The area is now firm and there is an obvious head to the abscess. Dr. Morgan did also assess the abscess and feels that it would benefit from drainage. We will prepare to drain the abscess. Free Text/Narrative Re-Assessment/Exam: 04/29/19 14:39 Appropriate written consent was obtained. Abscess was drained of a moderate amount of purulent and sanguinous drainage. See procedure notes. Patient tolerated well and verbalize relief of pressure after the area was drained. We will add an additional 4 days under her treatment with Bactrim DS for a total of 14 days of treatment. Patient was educated to leave the iodiform packing intact for 2 days and then remove. Discharge instructions as documented. Departure - Departure Time of Disposition: 14:47 Disposition: Home, Self-Care 01 Condition: Fair Clinical Impression: Abscess - Discharge Information *PRESCRIPTION DRUG MONITORING PROGRAM REVIEWED*: No *COPY OF PRESCRIPTION DRUG MONITORING REPORT IN PATIENT GUILLE: No Prescriptions: Sulfamethoxazole/Trimethoprim [Bactrim Ds Tablet] 1 each PO BID #8 tablet Instructions: Skin Abscess Referrals: Christina Grady NP [Primary Care Provider] - Forms: ED Department Discharge Additional Instructions: Keep packing intact to abcess for the next 2 days and then remove. Then keep the area clean with normal soap and water. Continue taking Bactrim DS twice daily for a total of 14 days. A prescription for an additional 4 days has been sent to [facility] [address]. If you symptoms should worsen, fail to improve or if you develop any new or worsening symptom, please follow up with your primary care provider or return to the ER as needed.
== END 2019-04-29 14:56 | disposition home or self-care (01) ==
LOC: JD.ED 13:09
DX: L02.415 Cutaneous abscess of right lower limb (principal); I10 Essential (primary) hypertension; E11.9 Type 2 diabetes mellitus without complications; F17.210 Nicotine dependence, cigarettes, uncomplicated; Z79.4 Long term (current) use of insulin; Z91.040 Latex allergy status; Z91.048 Other nonmedicinal substance allergy status
CPT/HCPCS: 10060; 99282; J2001

== ENCOUNTER 2019-05-11 12:04 | Emergency (ER) | payer MEDICAID ==
[2019-05-11 12:24] VITALS: PULSE 107
[2019-05-11 12:40] VITALS: BP 138/102
--- NOTE | 2019-05-11 12:48 | EDM.PDOC ---
ED HPI GENERAL MEDICAL PROBLEM - General Chief Complaint: Upper Extremity Injury/Pain Stated Complaint: REDNESS/SWELLING IN R ARM AND L LEG Time Seen by Provider: 05/11/19 12:23 Source of Information: Reports: Patient, RN Notes Reviewed - History of Present Illness INITIAL COMMENTS - FREE TEXT/NARRATIVE: 48 year old female comes in with area of bruising R arm, L knee discomfort. The bruise first appeared about a week ago. 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 Also started having L knee pain today. Not aware of any acute injury. - Related Data Allergies Allergy/AdvReac Type Severity Reaction Status Date / Time adhesive Allergy Rash Verified 04/29/19 13:34 latex Allergy Rash Verified 04/29/19 13:34 metformin AdvReac Diarrhea Verified 04/29/19 13:34 metals Allergy Rash Uncoded 04/29/19 13:34 Home Meds: Home Meds Insulin Aspart [NovoLOG] 1 unit SQ ASDIRECTED 04/29/19 [History] Insulin Glarg,Human.Rec.Analog [Lantus] 30 unit SQ DAILY 04/29/19 [History] Sulfamethoxazole/Trimethoprim [Bactrim Ds Tablet] 1 each PO BID #8 tablet [Rx] Sulfamethoxazole/Trimethoprim [Bactrim Ds Tablet] 1 tab PO DAILY 04/29/19 [ History] Past Medical History HEENT History: Reports: Impaired Vision Other HEENT History: glassess Cardiovascular History: Reports: Hypertension Gastrointestinal History: Reports: GERD, Inflammatory Bowel Disease Genitourinary History: Reports: Chronic Renal Insuffiency, Other (See Below) Other Genitourinary History: cyst on kidney; renal failure twice [employer] History: Reports: Musculoskeletal History: Reports: Arthritis, Back Pain, Chronic, Other (See Below) Other Musculoskeletal History: 3 back surgeries and has pins and rods Neurological History: Reports: Migraines Other Neuro History: Pt states having increase in frequency and intensity in headaches Psychiatric History: Reports: Anxiety, Bipolar, Dementia, PTSD Endocrine/Metabolic History: Reports: Diabetes, Type II Hematologic History: Reports: None Dermatologic History: Reports: Psoriasis - Infectious Disease History Infectious Disease History: Reports: Hepatitis C, MRSA - Past Surgical History HEENT Surgical History: Reports: Adenoidectomy, Tonsillectomy GI Surgical History: Reports: Appendectomy, Cholecystectomy Female Surgical History: Reports: Hysterectomy Social & Family History - Family History Cardiac: Reports: CAD Neurological: Reports: CVA Oncologic: Reports: Breast, Cervix - Tobacco Use Smoking Status *Q: Current Every Day Smoker Years of Tobacco use: 26 Packs/Tins Daily: 0.5 - Caffeine Use Caffeine Use: Reports: Coffee, Soda - Recreational Drug Use Recreational Drug Use: No Review of Systems - Review of Systems Review Of Systems: See Below Eyes: Reports: No Symptoms Mouth/Throat: Reports: No Symptoms Respiratory: Denies: Shortness of Breath Cardiovascular: Denies: Chest Pain Musculoskeletal: Reports: Arm Pain, Joint Pain (L knee) Skin: Reports: Bruising (R arm), Rash (associated with psoriasis) Neurological: Denies: Headache, Numbness, Tingling, Weakness ED EXAM, GENERAL - Physical Exam Exam: See Below General Appearance: Alert, No Apparent Distress Eye Exam: Bilateral Eye: PERRL Throat/Mouth: Normal Inspection Head: Atraumatic Neck: Supple Respiratory/Chest: No Respiratory Distress, Lungs Clear, Normal Breath Sounds Cardiovascular: Tachycardia Extremities: Other (small area of bruising R upper medial arm, very mild localized tenderness, forearm and remainder of upper arm without swelling, warmth, erythema.). No: Joint Swelling (mild diffuse tenderness L knee, good ROM, joint stable, leg not swollen, warm or erythematous) Neurological: Alert, Oriented, No Motor/Sensory Deficits Skin Exam: Warm, Dry, Rash (diffuse psoriasis upper and lower body) Course - Vital Signs Last Recorded V/S: Last Vital Signs Temp 97.2 F 05/11/19 12:17 Pulse 107 H 05/11/19 12:17 Resp 20 05/11/19 12:17 BP 138/102 H 05/11/19 12:40 Pulse Ox - Re-Assessments/Exams Free Text/Narrative Re-Assessment/Exam: 05/11/19 15:57 presented with concern about bruise R arm and L knee pain but than after discharge asking if she can have script for short course of prednisone to help with her psoriasis. Discharge instr. as documented. Departure - Departure Time of Disposition: 12:44 Disposition: Home, Self-Care 01 Condition: Fair Clinical Impression: Traumatic ecchymosis of right upper arm, Left knee pain, Psoriasis - Discharge Information Instructions: Psoriasis, [id number] Referrals: Christina Grady NP [Primary Care Provider] - Forms: ED Department Discharge Additional Instructions: Tylenol 2 to 3 times daily as needed for discomfort, pito wrap L knee as needed. Prednisone 40 mg daily for 5 days, if your blood sugars start running too high cut back to 20 mg daily. Follow up clinic as needed.
== END 2019-05-11 13:01 | disposition home or self-care (01) ==
LOC: JD.ED 12:04
DX: S40.021A Contusion of right upper arm, initial encounter (principal); M25.562 Pain in left knee; L40.9 Psoriasis, unspecified; E11.22 Type 2 diabetes mellitus with diabetic chronic kidney disease; I12.9 Hypertensive chronic kidney disease with stage 1 through stage 4 chronic kidney disease, or unspecified chronic kidney disease; N18.9 Chronic kidney disease, unspecified; F17.210 Nicotine dependence, cigarettes, uncomplicated; Z91.048 Other nonmedicinal substance allergy status; Z91.040 Latex allergy status; Z88.8 Allergy status to other drugs, medicaments and biological substances; Z79.4 Long term (current) use of insulin; X50.0XXA Overexertion from strenuous movement or load, initial encounter
CPT/HCPCS: 99282; 99283

== ENCOUNTER 2020-01-19 12:24 | Emergency (ER) | payer MEDICAID ==
[2020-01-19] MEDS ORDERED: Sodium Chloride 0.9% 10 ML Syringe FLUSH PRN (12:30)
[2020-01-19] MEDS ORDERED: Sodium Chloride 0.9% 1,000 ML IV ONE (12:53)
--- NOTE | 2020-01-19 13:23 | EDM.PDOC ---
ED HPI GENERAL MEDICAL PROBLEM - General Chief Complaint: Respiratory Problem Stated Complaint: [facility] Time Seen by Provider: 01/19/20 12:30 Source of Information: Reports: Patient, EMS Notes Reviewed, RN Notes Reviewed History Limitations: Reports: No Limitations - History of Present Illness INITIAL COMMENTS - FREE TEXT/NARRATIVE: Patient is a 49-year-old female who presents to the ED via [facility] for difficulty breathing. Patient was made notified yesterday, that she has COVID-19 by her primary care provider Christina Grady. Patient states e verything was going well, but today she became more short of breath, had increased weakness, with nausea and vomiting, states that she is not really been able to keep anything down for food or fluids. She is an insulin-dependent diabetic, and has not been taking her insulin for roughly 1 week, she states that she has not been eating much, so she is not been taking her insulin. She notes that her is also returning from [place], on hospice, has had a major stroke and is COVID positive. Patient denies any fevers or chills, cough, and she has maybe some chest tightness otherwise she has been feeling okay. She is wondering if she does not have a little bit anxiety, regarding her 's return on hospice, as she knows this might be some of the last days she gets to spend with him. Ambulance did have an oxygen in route, but she is been on room air here, and her O2 sats are 94 to 95%. She is a smoker. She does not usually wear her mask in public, and she believes this is where she may have contracted COVID-19. The patient was given 1 dose of Zofran in route to the hospital, and states this did help her nausea. Her bedside glucose was 323 at time of triage. - Related Data Allergies Allergy/AdvReac Type Severity Reaction Status Date / Time adhesive Allergy Severe Rash Verified 01/19/20 12:39 latex Allergy Severe Rash Verified 01/19/20 12:39 metformin AdvReac Severe Diarrhea Verified 01/19/20 12:39 metals Allergy Severe Rash Uncoded 01/19/20 12:39 Home Meds: Home Meds Insulin Aspart [NovoLOG] 1 unit SQ ASDIRECTED 04/29/19 [History] Insulin Glarg,Human.Rec.Analog [Lantus] 30 unit SQ DAILY 04/29/19 [History] Past Medical History HEENT History: Reports: Impaired Vision Other HEENT History: glasses Cardiovascular History: Reports: Hypertension Gastrointestinal History: Reports: GERD, Inflammatory Bowel Disease Genitourinary History: Reports: Chronic Renal Insuffiency, Other (See Below) Other Genitourinary History: cyst on kidney; renal failure twice [employer] History: Reports: Musculoskeletal History: Reports: Arthritis, Back Pain, Chronic, Other (See Below) Other Musculoskeletal History: 3 back surgeries and has pins and rods Neurological History: Reports: Migraines Other Neuro History: Pt states having increase in frequency and intensity in headaches Psychiatric History: Reports: Anxiety, Bipolar, Dementia, PTSD Endocrine/Metabolic History: Reports: Diabetes, Type II Dermatologic History: Reports: Psoriasis - Infectious Disease History Infectious Disease History: Reports: Novel Coronavirus - Past Surgical History HEENT Surgical History: Reports: Adenoidectomy, Tonsillectomy GI Surgical History: Reports: Appendectomy, Cholecystectomy Female Surgical History: Reports: Hysterectomy Social & Family History - Family History Cardiac: Reports: CAD Neurological: Reports: CVA Oncologic: Reports: Breast, Cervix - Tobacco Use Smoking Status *Q: Current Every Day Smoker Years of Tobacco use: 29 Packs/Tins Daily: 0.4 - Caffeine Use Caffeine Use: Reports: Soda - Recreational Drug Use Recreational Drug Use: No ED ROS GENERAL - Review of Systems Review Of Systems: Comprehensive ROS is negative, except as noted in HPI. ED EXAM, GENERAL - Physical Exam Exam: See Below Exam Limited By: No Limitations General Appearance: Alert, WD/WN, No Apparent Distress, Anxious Nose: Normal Inspection Throat/Mouth: Normal Inspection, Normal Lips, Normal Teeth, Normal Gums, Normal Oropharynx, Normal Voice, No Airway Compromise Head: Atraumatic, Normocephalic Neck: Normal Inspection Respiratory/Chest: No Respiratory Distress, Lungs Clear, No Accessory Muscle Use, Chest Non-Tender, Decreased Breath Sounds (bilaterally) Cardiovascular: Normal Peripheral Pulses, Regular Rate, Rhythm, No Murmur Peripheral Pulses: 2+: Radial (L), Radial (R) GI/Abdominal: Normal Bowel Sounds, Soft, Non-Tender, No Distention, No Mass Extremities: Normal Inspection, Normal Capillary Refill Neurological: Alert, Oriented, Normal Cognition, No Motor/Sensory Deficits Psychiatric: Normal Affect, Normal Mood Skin Exam: Warm, Dry, Intact, Normal Color, No Rash Course - Vital Signs Last Recorded V/S: Last Vital Signs Temp 97.3 F 01/19/20 12:30 Pulse 100 01/19/20 12:30 Resp 20 01/19/20 12:30 BP 144/96 H 01/19/20 12:30 Pulse Ox 100 01/19/20 12:30 - Orders/Labs/Meds Orders: Active Orders 24 hr Category Date Time Status Blood Glucose Check, Bedside [RC] ONETIME Care 01/19/20 12:35 Active Peripheral IV Care [RC] . DIRECTED Care 01/19/20 12:31 Ordered Chest 1V Frontal [CR] Stat Exams 01/19/20 14:04 Ordered CULTURE BLOOD [BC] Stat Lab 01/19/20 12:32 Ordered CULTURE BLOOD [BC] Stat Lab 01/19/20 12:32 Ordered Sodium Chloride 0.9% [Normal Saline] 1,000 ml Med 01/19/20 12:53 Ordered IV ONETIME Sodium Chloride 0.9% [Saline Flush] Med 01/19/20 12:30 Ordered 10 ml FLUSH ASDIRECTED PRN Blood Culture x2 Reflex Set [OM.PC] Stat Oth 01/19/20 12:31 Ordered Peripheral IV Insertion Adult [OM.PC] Routine Oth 01/19/20 12:30 Ordered Medication Orders Sodium Chloride (Normal Saline) 1,000 mls @ 250 mls/hr IV ONETIME ONE Stop: 01/19/20 16:52 Last Admin: 01/19/20 12:57 Dose: 250 mls/hr Documented by: KALEE Sodium Chloride (Saline Flush) 10 ml FLUSH ASDIRECTED PRN PRN Reason: Keep Vein Open Last Admin: 01/19/20 12:58 Dose: 10 ml Documented by: KALEE Labs: Laboratory Tests 01/19/20 01/19/20 01/19/20 Range/Units 12:32 12:36 12:50 WBC 4.63 (3.98-10.04) K/mm3 RBC 4.43 (3.98-5.22) M/mm3 Hgb 13.4 D (11.2-15.7) gm/dl Hct 37.9 (34.1-44.9) % MCV 85.6 D (79.4-94.8) fl MCH 30.2 (25.6-32.2) pg MCHC 35.4 (32.2-35.5) g/dl RDW Std Deviation 39.8 (36.4-46.3) fL Plt Count 126 L (182-369) K/mm3 MPV 10.5 (9.4-12.3) fl Neut % (Auto) 50.8 (34.0-71.1) % Lymph % (Auto) 41.7 (19.3-51.7) % [place] % (Auto) 6.3 (4.7-12.5) % Eos % (Auto) 0.6 L (0.7-5.8) Baso % (Auto) 0.4 (0.1-1.2) % Neut # (Auto) 2.35 (1.56-6.13) K/mm3 Lymph # (Auto) 1.93 (1.18-3.74) K/mm3 [place] # (Auto) 0.29 (0.24-0.36) K/mm3 Eos # (Auto) 0.03 L (0.04-0.36) K/mm3 Baso # (Auto) 0.02 (0.01-0.08) K/mm3 ABG pH 7.43 (7.35-7.45) ABG pCO2 37.9 (35.0-45.0) mmHg ABG pO2 89.0 (80.0-100.0) mmHg ABG HCO3 24.5 (22.0-26.0) meq/L ABG O2 Saturation 97.1 H (96.0-97.0) % ABG Base Excess 0.8 (-2-2.0) Hu Test Positive FiO2 0.00 L (21.00-100.00) % Sodium (136-145) mEq/L Potassium (3.5-5.1) mEq/L Chloride (98-107) mEq/L Carbon Dioxide (21-32) mEq/L Anion Gap (5-15) BUN (7-18) mg/dL Creatinine (0.55-1.02) mg/dL Est Cr Clr Drug Dosing mL/min Estimated GFR (MDRD) (>60) mL/min BUN/Creatinine Ratio (14-18) Glucose (74-106) mg/dL POC Glucose 323 H (70-105) mg/dL Lactic Acid (0.4-2.0) mmol/L Calcium (8.5-10.1) mg/dL Ferritin (8-252) ng/ml Total Bilirubin (0.2-1.0) mg/dL AST (15-37) U/L ALT (14-59) U/L Alkaline Phosphatase (46-116) U/L Lactate Dehydrogenase (81-234) U/L C-Reactive Protein (<1.0) mg/dL Total Protein (6.4-8.2) g/dl Albumin (3.4-5.0) g/dl Globulin gm/dL Albumin/Globulin Ratio (1-2) Ketones (0.0-0.3) mM 01/19/20 01/19/20 01/19/20 Range/Units 12:50 12:50 12:50 WBC (3.98-10.04) K/mm3 RBC (3.98-5.22) M/mm3 Hgb (11.2-15.7) gm/dl Hct (34.1-44.9) % MCV (79.4-94.8) fl MCH (25.6-32.2) pg MCHC (32.2-35.5) g/dl RDW Std Deviation (36.4-46.3) fL Plt Count (182-369) K/mm3 MPV (9.4-12.3) fl Neut % (Auto) (34.0-71.1) % Lymph % (Auto) (19.3-51.7) % [place] % (Auto) (4.7-12.5) % Eos % (Auto) (0.7-5.8) Baso % (Auto) (0.1-1.2) % Neut # (Auto) (1.56-6.13) K/mm3 Lymph # (Auto) (1.18-3.74) K/mm3 [place] # (Auto) (0.24-0.36) K/mm3 Eos # (Auto) (0.04-0.36) K/mm3 Baso # (Auto) (0.01-0.08) K/mm3 ABG pH (7.35-7.45) ABG pCO2 (35.0-45.0) mmHg ABG pO2 (80.0-100.0) mmHg ABG HCO3 (22.0-26.0) meq/L ABG O2 Saturation (96.0-97.0) % ABG Base Excess (-2-2.0) Hu Test FiO2 (21.00-100.00) % Sodium 133 L (136-145) mEq/L Potassium 3.7 (3.5-5.1) mEq/L Chloride 96 L (98-107) mEq/L Carbon Dioxide 26 (21-32) mEq/L Anion Gap 14.7 (5-15) BUN 15 (7-18) mg/dL Creatinine 0.8 (0.55-1.02) mg/dL Est Cr Clr Drug Dosing 71.91 mL/min Estimated GFR (MDRD) > 60 (>60) mL/min BUN/Creatinine Ratio 18.8 H (14-18) Glucose 338 H (74-106) mg/dL POC Glucose (70-105) mg/dL Lactic Acid 1.1 (0.4-2.0) mmol/L Calcium 8.9 (8.5-10.1) mg/dL Ferritin 245 (8-252) ng/ml Total Bilirubin 0.5 (0.2-1.0) mg/dL AST 45 H (15-37) U/L ALT 68 H (14-59) U/L Alkaline Phosphatase 98 (46-116) U/L Lactate Dehydrogenase 227 (81-234) U/L C-Reactive Protein <0.2 (<1.0) mg/dL Total Protein 7.6 (6.4-8.2) g/dl Albumin 3.6 (3.4-5.0) g/dl Globulin 4.0 gm/dL Albumin/Globulin Ratio 0.9 L (1-2) Ketones (0.0-0.3) mM 01/19/20 Range/Units 12:50 WBC (3.98-10.04) K/mm3 RBC (3.98-5.22) M/mm3 Hgb (11.2-15.7) gm/dl Hct (34.1-44.9) % MCV (79.4-94.8) fl MCH (25.6-32.2) pg MCHC (32.2-35.5) g/dl RDW Std Deviation (36.4-46.3) fL Plt Count (182-369) K/mm3 MPV (9.4-12.3) fl Neut % (Auto) (34.0-71.1) % Lymph % (Auto) (19.3-51.7) % [place] % (Auto) (4.7-12.5) % Eos % (Auto) (0.7-5.8) Baso % (Auto) (0.1-1.2) % Neut # (Auto) (1.56-6.13) K/mm3 Lymph # (Auto) (1.18-3.74) K/mm3 [place] # (Auto) (0.24-0.36) K/mm3 Eos # (Auto) (0.04-0.36) K/mm3 Baso # (Auto) (0.01-0.08) K/mm3 ABG pH (7.35-7.45) ABG pCO2 (35.0-45.0) mmHg ABG pO2 (80.0-100.0) mmHg ABG HCO3 (22.0-26.0) meq/L ABG O2 Saturation (96.0-97.0) % ABG Base Excess (-2-2.0) Hu Test FiO2 (21.00-100.00) % Sodium (136-145) mEq/L Potassium (3.5-5.1) mEq/L Chloride (98-107) mEq/L Carbon Dioxide (21-32) mEq/L Anion Gap (5-15) BUN (7-18) mg/dL Creatinine (0.55-1.02) mg/dL Est Cr Clr Drug Dosing mL/min Estimated GFR (MDRD) (>60) mL/min BUN/Creatinine Ratio (14-18) Glucose (74-106) mg/dL POC Glucose (70-105) mg/dL Lactic Acid (0.4-2.0) mmol/L Calcium (8.5-10.1) mg/dL Ferritin (8-252) ng/ml Total Bilirubin (0.2-1.0) mg/dL AST (15-37) U/L ALT (14-59) U/L Alkaline Phosphatase (46-116) U/L Lactate Dehydrogenase (81-234) U/L C-Reactive Protein (<1.0) mg/dL Total Protein (6.4-8.2) g/dl Albumin (3.4-5.0) g/dl Globulin gm/dL Albumin/Globulin Ratio (1-2) Ketones 0.32 (0.0-0.3) mM Meds: Medications Generic Name Dose Route Start Last Admin Trade Name Fay PRN Reason Stop Dose Admin Sodium Chloride 1,000 mls @ 250 mls/hr 01/19/20 12:53 01/19/20 12:57 Normal Saline IV 01/19/20 16:52 250 mls/hr ONETIME ONE Administration Sodium Chloride 10 ml 01/19/20 12:30 01/19/20 12:58 Saline Flush FLUSH 10 ml ASDIRECTED PRN Administration Keep Vein Open - Re-Assessments/Exams Free Text/Narrative Re-Assessment/Exam: 01/19/20 13:21 Patient presents to the ED for increasing shortness of breath with a diagnosis of COVID-19. I do highly suspect, that this is more likely due to her anxiety of her 's impending return. She does seem pretty distraught that these are some of the last time she will be spending with him, as he has been on hospice and has COVID-19. Nonetheless we will perform labs, have an IV placed, give IV fluids for management of the blood sugar. At this time patient is not requiring oxygen, will hopefully get her to go home, and monitor her symptoms so she can spend time with her . 01/19/20 14:20 Patient's laboratory evaluation has come back, and is fairly unremarkable. Her glucose is still elevated at 330. She is gotten some fluids. I did direct her that she needs to take her insulin as directed along with taking her blood sugars at home. If she does not have an appetite, I told her she should eat some small more frequent meals, just to keep herself eating. Chest x-ray is going to be performed. She will be discharged home after her chest x-ray, as she is requesting to go home to spend time with her , and labs are essentially unremarkable enough that this would probably be okay. 01/19/20 14:38 Chest x-ray is unremarkable. There is no sign of consolidation or any other consolidative processes. Mild hyperinflation noted, official radiology read is pending. Departure - Departure Time of Disposition: 14:40 Disposition: Home, Self-Care 01 Condition: Good Clinical Impression: Elevated blood sugar, COVID-19, Panic attack due to exceptional stress - Discharge Information *PRESCRIPTION DRUG MONITORING PROGRAM REVIEWED*: No *COPY OF PRESCRIPTION DRUG MONITORING REPORT IN PATIENT GUILLE: No Instructions: Prevent the Spread of COVID-19 if You Are Sick - [facility] Forms: ED Department Discharge Additional Instructions: You were evaluated in the ER today for your ongoing respiratory symptoms, and elevated blood sugars. Labs done today, demonstrate that your blood sugar is elevated at 330, you should be taking your insulin at home, on a sliding scale as previously directed. If you are not feeling well, have not a lot appetite, please try to do more frequent smaller meals, to allow your self to keep eating. Your chest x-ray was unremarkable. It is likely that your shortness of breath exhibited today was more of a panic attack in nature. If you should have increasing shortness of breath, where your O2 sats start to drop, below 90%, this would be cause for concern to return to the ER for further management. Please return to the ER at any time if your symptoms change or worsen. Sepsis Event Note (ED) - Evaluation Sepsis Screening Result: No Definite Risk - Focused Exam Vital Signs: Vital Signs Temp Pulse Resp BP Pulse Ox 01/19/20 12:30 97.3 F 100 20 144/96 H 100 - My Orders Last 24 Hours: My Active Orders 01/19/20 12:30 Sodium Chloride 0.9% [Saline Flush] 10 ml FLUSH ASDIRECTED PRN Peripheral IV Insertion Adult [OM.PC] Routine 01/19/20 12:31 Peripheral IV Care [RC] . DIRECTED Blood Culture x2 Reflex Set [OM.PC] Stat 01/19/20 12:32 CULTURE BLOOD [BC] Stat CULTURE BLOOD [BC] Stat 01/19/20 12:35 Blood Glucose Check, Bedside [RC] ONETIME 01/19/20 12:53 Sodium Chloride 0.9% [Normal Saline] 1,000 ml IV ONETIME 01/19/20 14:04 Chest 1V Frontal [CR] Stat - Assessment/Plan Last 24 Hours: My Active Orders 01/19/20 12:30 Sodium Chloride 0.9% [Saline Flush] 10 ml FLUSH ASDIRECTED PRN Peripheral IV Insertion Adult [OM.PC] Routine 01/19/20 12:31 Peripheral IV Care [RC] . DIRECTED Blood Culture x2 Reflex Set [OM.PC] Stat 01/19/20 12:32 CULTURE BLOOD [BC] Stat CULTURE BLOOD [BC] Stat 01/19/20 12:35 Blood Glucose Check, Bedside [RC] ONETIME 01/19/20 12:53 Sodium Chloride 0.9% [Normal Saline] 1,000 ml IV ONETIME 01/19/20 14:04 Chest 1V Frontal [CR] Stat
[2020-01-19 16:19] VITALS: BP 141/96; PULSE 85
--- NOTE | 2020-01-20 09:01 | CR ---
Chest: Portable view of the chest was obtained. Comparison: Prior chest x-ray of 05/10/17. Heart size and mediastinum are normal. Lungs are clear with no acute parenchymal change. Minimal scoliosis is noted within the spine. Previous lumbar spine surgery is noted. Impression: 1. Nothing acute is seen on portable chest x-ray. Diagnostic code #1 This report was dictated in MDT
== END 2020-01-19 14:52 | disposition home or self-care (01) ==
LOC: JD.ED 12:24
DX: U07.1 COVID-19 (principal); E11.65 Type 2 diabetes mellitus with hyperglycemia; F43.0 Acute stress reaction; I12.9 Hypertensive chronic kidney disease with stage 1 through stage 4 chronic kidney disease, or unspecified chronic kidney disease; E11.22 Type 2 diabetes mellitus with diabetic chronic kidney disease; N18.9 Chronic kidney disease, unspecified; F17.210 Nicotine dependence, cigarettes, uncomplicated; Z88.3 Allergy status to other anti-infective agents; Z78.9 Other specified health status; Z88.8 Allergy status to other drugs, medicaments and biological substances; Z90.89 Acquired absence of other organs; Z90.49 Acquired absence of other specified parts of digestive tract; Z79.4 Long term (current) use of insulin; Z91.040 Latex allergy status
CPT/HCPCS: 36415; 36600; 71045; 80053; 82009; 82728; 82803; 82962; 83605; 83615; 85025; 86140; 87040; 96360; 96361; 99285; J7030; 99284